=== PATIENT | male | born 2000 | race Two or more races ===

== ENCOUNTER 2022-09-15 10:20 | Emergency (ER) | payer MEDICAID ==
[~2022-09-15] VITALS: Ht 177.8 cm; Wt 75.8 kg
[2022-09-15 10:25] VITALS: BP 139/73
[2022-09-15] MEDS ORDERED: IBUPROFEN 800 MG TAB PO ONE (11:30)
== END 2022-09-15 13:44 | disposition home or self-care (01) ==
LOC: ER 10:20
DX: S40.022A Contusion of left upper arm, initial encounter (principal); W23.0XXA Caught, crushed, jammed, or pinched between moving objects, initial encounter; Y93.55 Activity, bike riding; Y92.89 Other specified places as the place of occurrence of the external cause; Y99.8 Other external cause status
CPT/HCPCS: 73060; 73090